=== PATIENT | female | born 1965 | race African-American/Black ===

== ENCOUNTER 2024-07-24 18:01 | Emergency (ER) | payer OTHER ==
[2024-07-24] MEDS ORDERED: ONDANSETRON 4 MG/2 ML VIAL ONE (18:49)
[2024-07-24 18:58] LABS: Absolute Basophils 0.1 K/uL (0-0.5); Absolute Lymphocytes (CBC) 1.5 K/uL (0.7-4.9); Absolute Neutrophil 4.8 K/uL (1.8-8.0); Basophils % 0.9 % (0-1.3); Eosinophils % 0.5 % (0-4.4); Hematocrit 40.8 % (36.0-45.0); Hemoglobin 13.6 g/dL (12.0-15.0); Lymphocytes % 20.5 % (15.3-44.8); MCH 27.5 pg (27.0-35.0); MCHC 33.4 g/dL (32.0-36.0); MCV 82.3 fL (80-100); MPV 8.6 fL (7.6-11.3); Monocytes % 13.8 % (3.3-12.3); Neutrophils % 64.3 % (41.7-73.7); Nucleated Red Blood Cells % 0.2 % (0-0); Platelets 300 thou/uL (152-406); RBC Red Blood Cell Count 4.96 M/uL (3.86-4.86); Red Cell Distribution Width 17.2 % (12.1-15.2)
[2024-07-24 19:17] LABS: Albumin/Globulin Ratio 0.7 (1.1-1.8); Anion Gap 22.7 mEq/L (5.0-15.0); Bilirubin Direct 0.3 mg/dL (0-0.2); Bilirubin Indirect, Calculated 0.9 mg/dL (0.2-0.8); Bilirubin Total 1.2 mg/dL (0.2-1.0); Globulin 5.4 g/dL (2.3-3.5); Protein, Total 9.4 g/dL (6.4-8.2)
[2024-07-24 19:18] LABS: Potassium 3.7 mEq/L (3.5-5.1)
--- NOTE | 2024-07-24 19:32 | RAD REPORT ---
EXAM DESCRIPTION: Mike Single View07/24/2024 7:05 pm CLINICAL HISTORY: sob COMPARISON: none FINDINGS: The lungs appear clear of acute infiltrate. The heart is normal size IMPRESSION: No acute abnormalities displayed
[2024-07-24] MEDS ORDERED: NA CHLORIDE 0.9% 1,000 ML ONE (19:56)
[2024-07-24] MEDS ORDERED: FAMOTIDINE 20 MG/2 ML VIAL IV ONE (20:47)
--- NOTE | 2024-07-24 21:58 | RAD REPORT ---
EXAM DESCRIPTION: CT - Abdomen Pelvis Wo Contrast - 07/24/2024 9:41 pm CLINICAL HISTORY: Abdominal pain COMPARISON: None TECHNIQUE: Computed axial tomography of the abdomen and pelvis was obtained. IV and oral contrast we re not requested. All CT scans are performed using dose optimization technique as appropriate and may include automated exposure control or mA/KV adjustment according to patient size. FINDINGS: The evaluation of solid organs, vessels and bowel is limited secondary to the lack of con trast administration. The liver, spleen, pancreas, adrenals and kidneys appear grossly normal. 3 centimeter duodenal diverticulum Tubal ligation clips are present. Uterine fibroids some calcified are present. The appendix is normal. There is no evidence of diverticulitis. Mild anterior subluxation L4 on L5 Diastases of the rectus abdominis muscles 5 centimeters Arthritis SI joints IMPRESSION: No acute abnormality is displayed.
--- NOTE | 2024-07-24 22:57 | EDPHYS ---
Physician Documentation [facility] Name: Dary Webster Age: 59 yrs Sex: Female : 1965 Arrival Date: 07/24/2024 Time: 18:01 Bed 16 Private MD: ED Physician Dez Abbott HPI: 07/24 18:41 This 59 yrs old Black Female presents to ER via EMS with complaints of Abdominal Pain, aj3 Shortness Of Breath, Vomiting. 18:41 She reports that her symptoms started about 4 days ago with abdominal pain first aj3 associated with nausea and 1 episode of vomiting. The shortness of breath started yesterday. No reports of chest pain, fever or chills.. Historical: - Allergies: 18:26 Lisinopril; cm10 - PMHx: 18:26 COPD; Coronary artery disease; Atrial fibrillation; Hypertensive disorder; cm10 - Immunization history:: Adult Immunizations up to date. - Infectious Disease History:: Denies. - Social history:: Smoking status: Patient/guardian denies using tobacco. ROS: 18:41 Constitutional: Negative for fever, chills, and weight loss, aj3 18:41 Respiratory: Positive for shortness of breath, 18:41 Abdomen/GI: Positive for abdominal pain, nausea, vomiting, Negative for Exam: 18:41 Constitutional: This is a well developed, well nourished patient who is awake, alert, aj3 and in no acute distress. Cardiovascular: Regular rate and rhythm with a normal S1 and S2. No gallops, murmurs, or rubs. Normal PMI, no JVD. No pulse deficits. Respiratory: Lungs have equal breath sounds bilaterally, clear to auscultation and percussion. No rales, rhonchi or wheezes noted. No increased work of breathing, no retractions or nasal flaring. 18:41 MS/ Extremity: Pulses equal, no cyanosis. Neurovascular intact. Full, normal range of motion. Neuro: Awake and alert, GCS 15, oriented to person, place, time, and situation. Motor strength 5/5 in all extremities. Sensory grossly intact. Normal gait. 18:41 ECG was reviewed by the Attending Physician. 18:41 Abdomen/GI: Inspection: Bowel sounds: normal, Palpation: soft, mild abdominal tenderness, Epigastric, Vital Signs: 18:25 BP 149 / 93; Pulse 134; Resp 22; Temp 97.7(O); Pulse Ox 100% ; Weight 71.67 kg; Height cm10 4 ft. 11 in. ; Pain 10/10; 18:53 BP 133 / 79; Pulse 113; Resp 18; Pulse Ox 100% on R/A; mb9 19:10 BP 92 / 78; Pulse 120; Resp 19; Temp 98; Pulse Ox 100% on R/A; Pain 0/10; rg5 20:00 BP 116 / 83; Pulse 113; Resp 19; Pulse Ox 100% on R/A; Pain 0/10; rg5 21:00 BP 112 / 63; Pulse 105; Resp 18; Pulse Ox 100% on R/A; Pain 0/10; rg5 22:09 BP 123 / 79; Pulse 108; Resp 18; Pulse Ox 100% on R/A; rg5 23:14 BP 129 / 72; Pulse 101; Resp 18; Temp 98; Pulse Ox 100% ; cp4 18:25 Body Mass Index 31.91 (71.67 kg, 149.86 cm) cm10 18:25 Pain Scale: Adult cm10 19:10 Pain Scale: Adult rg5 20:00 Pain Scale: Adult rg5 21:00 Pain Scale: Adult rg5 MDM: 19:03 Patient medically screened. aj3 22:30 Differential diagnosis: acute coronary syndrome, gastritis, gastroesophageal reflux aj3 disease, pancreatitis. Data reviewed: vital signs, nurses notes, lab test result(s), EKG, radiologic studies, CT scan, plain films. Independent interpretation of the following test(s) in the Emergency Department EKG: See my EKG interpretation above X-Ray: My interpretation is No obvious abnormality noted on my review of x-ray. Care significantly affected by the following chronic conditions: Chronic Obstructive Pulmonary Disease. Counseling: I had a detailed discussion with the patient and/or guardian regarding the historical points, exam findings, and any diagnostic results supporting the discharge/admit diagnosis, lab results, radiology results, to return to the emergency department if symptoms worsen or persist or if there are any questions or concerns that arise at home. ED course: Patient tolerated p.o. challenge and reports feeling much better after medications given in ED. Advised to follow-up with PCP within a week and return to ED for any worsening or new concerning symptoms. Patient discharged home with medications for symptoms.. 07/24 18:27 Order name: Basic Metabolic Panel; Complete Time: 19:29 07/24 18:27 Order name: CBC with Diff; Complete Time: 19:03 07/24 18:27 Order name: D-Dimer; Complete Time: 19:29 07/24 18:27 Order name: LFT's; Complete Time: 19:29 07/24 18:27 Order name: NT PRO-BNP; Complete Time: 19:29 07/24 18:27 Order name: Troponin HS; Complete Time: 19:29 07/24 18:27 Order name: Lipase; Complete Time: 19:29 07/24 18:27 Order name: XRAY Chest (1 view); Complete Time: 20:04 07/24 20:42 Order name: CT Abd/Pelvis - Without Contrast; Complete Time: 22:14 07/24 18:27 Order name: EKG; Complete Time: 18:28 07/24 18:27 Order name: Cardiac monitoring; Complete Time: 18:35 07/24 18:27 Order name: EKG - Nurse/Tech; Complete Time: 18:35 07/24 18:27 Order name: IV Saline Lock; Complete Time: 18:35 07/24 18:27 Order name: Labs collected and sent; Complete Time: 18:53 07/24 18:27 Order name: O2 Per Protocol; Complete Time: 18:35 07/24 18:27 Order name: O2 Sat Monitoring; Complete Time: 18:35 07/24 22:14 Order name: PO challenge; Complete Time: 22:15 3 EC:41 Rate is 119 beats/min. Rhythm is regular. QRS [place] is Normal. ID interval is normal. aj3 QRS interval is normal. QT interval is normal. T waves are Normal. No ST changes noted. Clinical impression: Sinus tachycardia. No STEMI. Interpreted by me. Reviewed by me. Administered Medications: 18:53 Drug: Ondansetron IVP 4 mg IVP once; over 2 minutes Route: IVP; Site: right forearm; mb9 20:01 Follow up: Response: No adverse reaction rg5 19:45 Drug: NS 0.9% IV 1000 ml IV at 125 ml/hr continuous Route: IV; Rate: 125 ml/hr; Site: rg5 right forearm; 20:50 Drug: Famotidine IVP 20 mg IVP once; dilute with 10 mL 0.9% NaCl; give over 2 minutes rg5 Route: IVP; Site: right antecubital; Disposition Summary: 07/24/24 22:56 Discharge Ordered Problem: new aj3 Symptoms: have improved aj3 Condition: Stable aj3 Diagnosis - Acute gastritis aj3 Followup: aj3 - With: Emergency Department - When: - Reason: If symptoms return Followup: aj3 - With: Private Physician - When: - Reason: Recheck today's complaints Discharge Instructions: - Discharge Summary Sheet aj3 - Gastritis, Adult aj3 Forms: - Medication Reconciliation Form aj3 - Antibiotic Education aj3 - Prescription Opioid Use aj3 - Patient Portal Instructions aj3 - Leadership Thank You Letter aj3 Prescriptions: - Prilosec OTC 20 mg Oral tablet, delayed release (enteric coated) - take 1 tablet ORAL route daily before breakfast; 30 tablet; Refills: 0, Product aj3 Selection Permitted - Carafate 1 gram Oral Tablet - take 1 tablet ORAL route 4 times per day take on an empty stomach, beginning on aj3 waking and last dose at bedtime; 100 tablet; Refills: 0, Product Selection Permitted Signatures: Dispatcher [employer] Dannielle Rodríguez NP MATHEMATICS EDUCATION PROFESSOR aj3 Marisela Sweeney RN RN mb9 Lali North RN RN cm10 Shahid Kenny RN RN rg5 Corrections: (The following items were deleted from the chart) 18:27 18:26 Allergies: No Known Allergies; cm10 cm10
--- NOTE | 2024-07-24 22:57 | ER ---
Nurse's Notes [facility] Name: Dary Webster Age: 59 yrs Sex: Female : 1965 Arrival Date: 07/24/2024 Time: 18:01 Bed 16 Private MD: Diagnosis: Acute gastritis Presentation: 07/24 18:25 Chief complaint: Patient states: Abdominal pain, shortness of breath, and vomiting cm10 onset . Coronavirus screen: Client denies travel out of the [place] in the last 14 days. Ebola Screen: Patient denies travel to an Ebola-affected area in the 21 days before illness onset. No symptoms or risks identified at this time. Initial Sepsis Screen: Does the patient meet any 2 criteria? RR > 20 per min. HR > 90 bpm. Does the patient have a suspected source of infection? No. Patient's initial sepsis screen is negative. Risk Assessment: Do you want to hurt yourself or someone else? Patient reports no desire to harm self or others. Onset of symptoms was July 24, 2024. 18:25 Method Of Arrival: EMS: [facility] cm10 18:25 Acuity: CARLA 3 cm10 Triage Assessment: 18:27 General: Appears in no apparent distress. comfortable, Behavior is calm, cooperative. cm10 Neuro: No deficits noted. Level of Consciousness is awake, alert, obeys commands, Oriented to person, place, time, situation, Appropriate for age. Respiratory: No deficits noted. Airway is patent Respiratory effort is even, unlabored, Respiratory pattern is regular, symmetrical. Historical: - Allergies: 18:26 Lisinopril; cm10 - PMHx: 18:26 COPD; Coronary artery disease; Atrial fibrillation; Hypertensive disorder; cm10 - Immunization history:: Adult Immunizations up to date. - Infectious Disease History:: Denies. - Social history:: Smoking status: Patient/guardian denies using tobacco. Screenin:55 [facility] ED Fall Risk Assessment (Adult) History of falling in the last 3 months, mb9 including since admission No falls in past 3 months (0 pts) Confusion or Disorientation No (0 pts) Intoxicated or Sedated No (0 pts) Impaired Gait No (0 pts) Mobility Assist Device Used No (0 pt) Altered Elimination No (0 pt) Score/Fall Risk Level 0 - 2 = Low Risk Oriented to surroundings, Maintained a safe environment, Educated pt \T\ family on fall prevention, incl call for assistance when getting out of bed. Abuse screen: Denies threats or abuse. Nutritional screening: No deficits noted. Tuberculosis screening: No symptoms or risk factors identified. Assessment: 18:54 General: Appears uncomfortable, Behavior is cooperative. Pain: Complains of pain in mb9 abdomen Pain does not radiate. Pain currently is 8 out of 10 on a pain scale. Quality of pain is described as throbbing, Pain began 2-3 days ago. Neuro: Garcia Agitation-Sedation Scale (RASS): 0 - Alert and Calm Level of Consciousness is awake, alert, obeys commands, Oriented to person, place, time, situation, Appropriate for age. Cardiovascular: Heart tones S1 S2 present Patient's skin is warm and dry. Respiratory: Airway is patent Respiratory effort is even, unlabored, Respiratory pattern is regular, symmetrical, Breath sounds are clear bilaterally. GI: Abdomen is flat, non-distended, Bowel sounds present X 4 quads. Abd is soft Abdomen is tender to palpation X 4 quads. Reports nausea, vomiting. : No signs and/or symptoms were reported regarding the genitourinary system. EENT: No signs and/or symptoms were reported regarding the EENT system. Derm: Skin is pink, warm \T\ dry. Musculoskeletal: Range of motion: intact in all extremities. 19:40 Reassessment: No changes from previously documented assessment. Patient and/or family rg5 updated on plan of care and expected duration. Pain level reassessed. Patient is alert, oriented x 3, equal unlabored respirations, skin warm/dry/pink. Pain: Denies pain. Cardiovascular: Reports palpitations, Rhythm is atrial fibrillation. Respiratory: Reports shortness of breath at rest. 20:00 Reassessment: Patient and/or family updated on plan of care and expected duration. Pain rg5 level reassessed. Patient is alert, oriented x 3, equal unlabored respirations, skin warm/dry/pink. 21:00 Reassessment: Patient and/or family updated on plan of care and expected duration. Pain rg5 level reassessed. Patient is alert, oriented x 3, equal unlabored respirations, skin warm/dry/pink. 22:11 Reassessment: Patient and/or family updated on plan of care and expected duration. Pain rg5 level reassessed. Patient is alert, oriented x 3, equal unlabored respirations, skin warm/dry/pink. Patient states feeling better. Vital Signs: 18:25 BP 149 / 93; Pulse 134; Resp 22; Temp 97.7(O); Pulse Ox 100% ; Weight 71.67 kg; Height cm10 4 ft. 11 in. ; Pain 10/10; 18:53 BP 133 / 79; Pulse 113; Resp 18; Pulse Ox 100% on R/A; mb9 19:10 BP 92 / 78; Pulse 120; Resp 19; Temp 98; Pulse Ox 100% on R/A; Pain 0/10; rg5 20:00 BP 116 / 83; Pulse 113; Resp 19; Pulse Ox 100% on R/A; Pain 0/10; rg5 21:00 BP 112 / 63; Pulse 105; Resp 18; Pulse Ox 100% on R/A; Pain 0/10; rg5 22:09 BP 123 / 79; Pulse 108; Resp 18; Pulse Ox 100% on R/A; rg5 23:14 BP 129 / 72; Pulse 101; Resp 18; Temp 98; Pulse Ox 100% ; cp4 18:25 Body Mass Index 31.91 (71.67 kg, 149.86 cm) cm10 18:25 Pain Scale: Adult cm10 19:10 Pain Scale: Adult rg5 20:00 Pain Scale: Adult rg5 21:00 Pain Scale: Adult rg5 ED Course: 18:03 Patient arrived in ED. im 18:23 Dannielle Wick NP is PHCP. aj3 18:23 Dez Abbott MD is Attending Physician. aj3 18:26 Triage completed. cm10 18:27 Arm band placed on Patient placed in an exam room, on a stretcher. cm10 18:30 Marisela Sweeney, TREY is Primary Nurse. mb9 18:54 No provider procedures requiring assistance completed. Initial lab(s) drawn, by joellen fair sent to lab. EKG done, by ED staff, reviewed by Dez Abbott MD. Inserted saline lock: 22 gauge in right forearm, using aseptic technique. Blood collected. Flushed with 10 mL NS. 18:55 Placed in gown. Bed in low position. Call light in reach. Side rails up X 1. Provided mb9 Education on: press call light if needing anything. Client placed on continuous cardiac and pulse oximetry monitoring. NIBP monitoring applied. java oracle developer on. 19:07 XRAY Chest (1 view) In Process Unspecified. EDMS 19:11 Report given to TREY Key. mb9 21:43 CT Abd/Pelvis - Without Contrast In Process Unspecified. EDMS 22:12 Awaiting radiology results. rg5 23:15 intact, bleeding controlled, No redness/swelling at site. Pressure dressing applied. cp4 Administered Medications: 18:53 Drug: Ondansetron IVP 4 mg IVP once; over 2 minutes Route: IVP; Site: right forearm; mb9 20:01 Follow up: Response: No adverse reaction rg5 19:45 Drug: NS 0.9% IV 1000 ml IV at 125 ml/hr continuous Route: IV; Rate: 125 ml/hr; Site: rg5 right forearm; 20:50 Drug: Famotidine IVP 20 mg IVP once; dilute with 10 mL 0.9% NaCl; give over 2 minutes rg5 Route: IVP; Site: right antecubital; Medication: 18:55 VIS not applicable for this client. mb9 Outcome: 22:56 Discharge ordered by MD. aj3 23:15 Discharged to home ambulatory, cp4 23:15 Condition: stable 23:15 Discharge instructions given to patient, Instructed on discharge instructions, follow up and referral plans. medication usage, Demonstrated understanding of instructions, follow-up care, medications, Prescriptions given X 2, 23:15 Patient left the ED. cp4 Signatures: Dispatcher [employer] EDMS Dannielle Wick, TRUCK ASSEMBLER TRUCK ASSEMBLER [email or web address] Marisela Sweeney RN RN mb9 Belle Zamudio Clarissa, RN RN cm10 Gabriela Ortega cp4 Shahid Kenny, TREY RN rg5 Corrections: (The following items were deleted from the chart) 18:27 18:26 Allergies: No Known Allergies; cm10 cm10
[2024-07-24 23:33] VITALS: O2SAT 100
[2024-07-24 23:37] VITALS: TEMP 98
[2024-07-24 23:44] VITALS: BP 129/72
--- NOTE | 2024-07-26 12:51 | EKG ---
Test Date: 2024-07-24 Test Time: 18:41:21 Head Chopper: MB MEASUREMENT RESULTS: Intervals: Rate: 119 MD: 144 QRSD: 78 QT: 344 QTc: 483 [place]: P: 82 MD: 144 QRS: 32 T: 86 INTERPRETIVE STATEMENTS: Sinus tachycardia Right atrial enlargement Cannot rule out Anterior infarct, age undetermined Abnormal ECG No previous ECG available for comparison Electronically Signed On 07-26-24 12:47:55 CDT by Tolu Cruz
== END 2024-07-24 23:15 | disposition home or self-care (01) ==
LOC: ER 18:01
DX: K29.00 Acute gastritis without bleeding (principal); I10 Essential (primary) hypertension; I48.91 Unspecified atrial fibrillation; I25.10 Atherosclerotic heart disease of native coronary artery without angina pectoris; J44.9 Chronic obstructive pulmonary disease, unspecified
CPT/HCPCS: 93005; 85025; 80048; 36415; 85379; 80076; 84484; 83690; 83880; 74176; 71045; 99285; J2405; J7030